=== PATIENT | male | born 1950 | race Caucasian/White ===

== ENCOUNTER 2016-08-08 06:44 | Emergency (ER) | payer OTHER ==
[2016-08-08 07:04] VITALS: TEMP 97.6; BMI 25.7
--- NOTE | 2016-08-08 07:33 | PDOC ---
History of Present Illness - General History Source: Patient Exam Limitations: No Limitations - History of Present Illness Initial Comments: 08/08/16 08:36 The patient is a 65 year old male, with a significant past medical history of hypertension, who presents to the emergency department with neck pain radiating to the left arm. Patient notes that he spend a long period of time yesterday sitting up and this morning developed neck pain. He notes that he has difficulty moving his neck because the pain is so severe. He denies chest pain, shortness of breath, headache and dizziness. He denies fever, chills, nausea, vomit, diarrhea and constipation. He denies dysuria, frequency, urgency and hematuria. PCP - Dr. Elver Grant <Mihaela Desir - Last Filed: 08/08/16 08:36> <Wayen Jimenez - Last Filed: 08/08/16 09:14> - General Chief Complaint: Pain, Acute Stated Complaint: BACK PAIN Past History <Mihaela Desir - Last Filed: 08/08/16 08:36> - Past Medical History HTN: Yes - Psycho/Social/Smoking Cessation Hx Suicidal Ideation: No Smoking History: Never smoked Have you smoked in the past 12 months: No Information on smoking cessation initiated: No Hx Alcohol Use: No Drug/Substance Use Hx: No <Wayne Jimenez - Last Filed: 08/08/16 09:14> - Past Medical History Allergies/Adverse Reactions: Allergies Allergy/AdvReac Type Severity Reaction Status Date / Time No Known Allergies Allergy Verified 08/08/16 07:00 Home Medications: Ambulatory Orders Amlodipine Besylate [Norvasc -] 5 mg PO DAILY 08/08/16 Review of Systems - Review of Systems Able to Perform ROS?: Yes Comments:: 08/08/16 08:37 CONSTITUTIONAL: Absent: fever, no chills, no fatigue EYES: Absent: visual changes ENT: Absent: ear pain, no sore throat CARDIOVASCULAR: Absent: chest pain, no palpitations RESPIRATORY: Absent: cough, no SOB GI: Absent: abdominal pain, no nausea, no vomiting, no constipation, no diarrhea GENITOURINARY: Absent: dysuria, no frequency, no hematuria MUSCULOSKELETAL: Present: neck pain Absent: back pain, no arthralgia, no myalgia SKIN: Absent: rash <Mihaela Desir - Last Filed: 08/08/16 08:36> *Physical Exam - Vital Signs Last Vital Signs Temp Pulse Resp BP Pulse Ox 97.6 F 76 14 160/90 98 08/08/16 07:00 08/08/16 07:00 08/08/16 07:00 08/08/16 07:00 08/08/16 07:00 - Physical Exam Comments: 08/08/16 08:38 GENERAL: Well-appearing, well-nourished. No apparent distress. HEENT: Normocephalic, atraumatic. PERRL, EOM intact. Neck is supple. No JVD. Mucous membranes are moist. CARDIOVASCULAR: Heart is in sinus rhythm. PULMONARY: Clear to auscultation bilaterally. ABDOMEN: Soft, non-distended, non-tender. EXTREMITIES: +ulnar median radial nerves are intact, able to raise left arm up. Normal ROM in all four extremities. No gross deformities. No peripheral edema. MUSCULOSKELETAL: +C5-C6 tenderness, limited neck ROM secondary to pain. SKIN: Warm, dry. No rash NEUROLOGICAL: No focal neurological deficits. <Mihaela Desir - Last Filed: 08/08/16 08:36> - Vital Signs Last Vital Signs Temp Pulse Resp BP Pulse Ox 97.6 F 76 14 160/90 98 08/08/16 07:00 08/08/16 07:00 08/08/16 07:00 08/08/16 07:00 08/08/16 07:00 <Wayne Jimenez - Last Filed: 08/08/16 09:14> ED Treatment Course - Medications Given in the ED: ED Medications Discontinued Medications Generic Name Dose Route Start Last Admin Trade Name Freq PRN Reason Stop Dose Admin Ketorolac Tromethamine 30 mg 08/08/16 07:41 08/08/16 08:11 Toradol Injection - IVPUSH 08/08/16 07:42 30 mg ONCE ONE Administration <Mihaela Desir - Last Filed: 08/08/16 08:36> Medical Decision Making - Medical Decision Making 08/08/16 09:14 Clinical cervical radiculopathy <Wayne Jimenez - Last Filed: 08/08/16 09:14> *DC/Admit/Observation/Transfer - Attestations Scribe Attestion: 08/08/16 08:39 Documentation prepared by CHERYL Nova, acting as medical practice administrator for Wayne Jimenez MD. <Mihaela Desir - Last Filed: 08/08/16 08:36> - Discharge Dispostion Admit: No <Wayne Jimenez - Last Filed: 08/08/16 09:14> Diagnosis at time of Disposition: Cervical radiculopathy at C5 - Discharge Dispostion Disposition: HOME Condition at time of disposition: Stable
[2016-08-08] MEDS ORDERED: KETOROLAC TROMETHAMINE 30 MG/1 ML VIAL IVPUSH ONE (07:41)
[2016-08-08] MEDS ORDERED: DEXAMETHASONE SOD PHOSPHATE 10 MG/1 ML VIAL IVPUSH ONE (07:41)
[2016-08-08] MEDS ORDERED: KETOROLAC TROMETHAMINE 30 MG/1 ML VIAL ONE (08:02)
[2016-08-08] MEDS ORDERED: DEXAMETHASONE SOD PHOSPHATE 10 MG/1 ML VIAL ONE (08:36)
[2016-08-08 09:27] VITALS: BP 145/89; PULSE 72
== END 2016-08-08 09:27 | disposition home or self-care (01) ==
LOC: JER 06:44
PROC: 3E0333Z Introduction of Anti-inflammatory into Peripheral Vein, Percutaneous Approach (ICD-10-PCS; principal; 2016-08-08)
DX: M54.12 Radiculopathy, cervical region (principal); I10 Essential (primary) hypertension
CPT/HCPCS: 72125-TC; 96374; 96375; 99283-25

== ENCOUNTER 2023-01-05 04:52 | Day surgery (SDC) | payer OTHER ==
[2022-12-30 09:39] VITALS: BMI 25.0
[2023-01-05 16:02] VITALS: RESP 18
[2023-01-05 16:31] VITALS: BP 118/90; PULSE 64; TEMP 98
== END 2023-01-05 16:55 | disposition home or self-care (01) ==
LOC: JASU-ENDO 04:52
PROVIDERS: ATTEND Student in an Organized Health Care Education/Training Program
PROC: 0DJD8ZZ Inspection of Lower Intestinal Tract, Via Natural or Artificial Opening Endoscopic (ICD-10-PCS; principal; 2023-01-05 13:30)
DX: Z12.11 Encounter for screening for malignant neoplasm of colon (principal); K57.30 Diverticulosis of large intestine without perforation or abscess without bleeding; K64.8 Other hemorrhoids